=== PATIENT | male | born 1975 | race Caucasian/White ===

== ENCOUNTER → 2016-10-18 | Outpatient (CLI) | payer BC ==
[~2016-10-18] MED LIST: ACETAMINOPHEN PO; LORTAB 7.5-5001 TAB PO; MOTRIN
--- NOTE | ~2016-10-18 | CT4 ---
[facility] A Service of [facility] RADIOLOGY TEXT RESULTS PATIENT: JR LANCE FOSTER LOCATION: [facility] : 71 UNIT #: [id number] AGE: [address]: Drew Morse MD SEX: M ORDER DR: [id number] [facility] [address] [place], [place] [address] [id number] O MR#: [id number] [facility] #: [id number] NAME: LANCE FOSTER : 1975 SEX: M STUDY DATE/TIME: 10/18/2016 8:00 UNIT: [facility] ROOM: STUDY DESCRIPTION: CT Abd and Pelv Wo Cont Attending Physician: Drew Morse M.D. Referring Physician: Drew Morse M.D. Ordering Physician: Drew Morse M.D. Primary Care Physician: Drew Morse M.D. MEDICAL IMAGING REPORT This report is preliminary unless electronic signature is present EXAM CT abdomen and pelvis, 10/18/2016. HISTORY Left inguinal bulge felt during exam for physical. TECHNIQUE CT abdomen and pelvis performed without oral or intravascular contrast. This CT exam was performed with one or more of the following radiation dose reduction techniques: automatic exposure control, adjustment of mA and/or kV according to patient size, and iterative reconstruction. COMPARISON No comparisons. FINDINGS Lung bases are clear. Inferior heart and pericardium unremarkable. Liver, gallbladder, spleen, pancreas, adrenal glands, kidneys normal in appearance. CT PELVIS: Small left inguinal hernia containing only fat without complication. Urinary bladder unremarkable. No inguinal or intrapelvic adenopathy. No abnormal fluid collection and no retroperitoneal adenopathy. The esophagus, stomach, small bowel, appendix, colon unremarkable. Vascular structures normal on these noncontrast enhanced images. Bony structures show no acute abnormality. IMPRESSION 1. No acute-appearing abnormality in the abdomen or pelvis. 2. There is a small left inguinal hernia containing only fat without complication. 3. Gallbladder, pancreas, kidneys, appendix normal. Remainder of study [facility] A Service of [facility] RADIOLOGY TEXT RESULTS PATIENT: JR LANCE FOSTER LOCATION: [facility] : 71 UNIT #: [id number] AGE: [address]: Drew Morse MD SEX: M ORDER DR: unremarkable. Dictated by... Lance Weiss M.D. THIS IS AN ELECTRONICALLY VERIFIED REPORT Lance Weiss M.D. at 10/19/2016 10:44 PM KENY/blanka TD: 10/18/2016 20:29 JOB #: [id number] MEDICAL IMAGING REPORT Page 1 of 1 COPY
== END | disposition home or self-care (01) ==
LOC: CCAT 10-15 08:00
DX: R19.09 Other intra-abdominal and pelvic swelling, mass and lump (principal); K40.90 Unilateral inguinal hernia, without obstruction or gangrene, not specified as recurrent
CPT/HCPCS: 74176